=== PATIENT | male | born 1955 | race Caucasian/White ===

== ENCOUNTER 2016-05-08 05:58 | Emergency (ER) | payer BC ==
[~2016-05-08] VITALS: Ht 177.8 cm; Wt 84.7 kg
[~2016-05-08 05:58] MED LIST: BENICAR20 MG PO; GLUCOPHAGE500 MG PO; HTN; HYDROCHLOROTH12.5 M1 PO; HYDROCHLOROTHIAZIDE; IMDUR30 MG PO; PRILOSEC20 MG PO; SUCRALFATE1 GM PO; TOPROL XL50 MG PO
[2016-05-08 06:34] LABS: MCH 29.8 PG (29.0-34.0); MCHC 35.2 G/DL (30.0-36.0); MCV 84.7 FL (86-99); MEAN PLAT.VOLUME 10.2 uM^3 (9.0-12.4); PLATELET COUNT 156 K/uL (156-360); RBC DIS.WIDTH-SD 40.5 % (39-53); WHITE BLOOD COUNT 15.3 K/uL (4.1-10.2)
[2016-05-08 07:24] LABS: CHLORIDE 100 mEq/L (99-109); POTASSIUM 3.8 mEq/L (3.7-5.4); SODIUM 134 mEq/L (136-147)
[2016-05-08 07:26] LABS: GLUCOSE 291 mg/dL (70-99)
[2016-05-08 07:27] LABS: ANION GAP 13 MEQ/L (2-14)
[2016-05-08 07:28] LABS: TOTAL BILIRUBIN 0.7 mg/dL (0.0-1.0)
[2016-05-08 07:29] LABS: ALKALINE PHOSPHATASE 77 IU/L (3-129); GFR ESTIMATE (CALCULATED) > 59 mL/min/
[2016-05-08 07:31] LABS: UREA NITROGEN (BUN) 16 mg/dL (9-23)
[2016-05-08 09:14] LABS: ADD MIUA? YES; BILIRUBIN NEGATIVE; BLOOD SMALL; COLOR YELLOW ((YELLOW)); GLUCOSE (STRIP) >=1000; KETONES 15; LEUKOCYTES NEGATIVE; NITRITE NEGATIVE; PH, URINE 5.5 (5-8); PROTEIN (STRIP) TRACE; SPECIFIC GRAVITY 1.037 (1.000-1.030); UROBILINOGEN 0.2 MG/DL (0.2-1.0)
[2016-05-08] MEDS ORDERED: GLIPIZIDE10 MG PO (09:24)
[2016-05-08] MEDS ORDERED: LISINOPRIL5 MG PO (09:25)
[2016-05-08] MEDS ORDERED: ATORVASTATIN CA10 MG PO (09:32)
[2016-05-08 09:51] LABS: BACTERIA NONE SEEN; CASTS NONE SEEN /LPF; CRYSTALS NONE SEEN; EPITHELIAL CELLS RARE; MUCUS NONE SEEN; PATHOLOGICAL CAST NONE SEEN; RED BLOOD CELLS 15-20 /HPF (0-5); SMALL ROUND CELL NONE SEEN; UCUL ADDED? NO; WHITE BLOOD CELLS 0-5 /HPF (0-5); YEAST-LIKE CELL NONE SEEN
[2016-05-08] MEDS ORDERED: ZOFRAN4 MG PO (11:08)
[2016-05-08] MEDS ORDERED: TORADOL10 MG PO (11:08)
[2016-05-08] MEDS ORDERED: PERCOCET 5/31 TABLET PO (11:08)
[2016-05-08] MEDS ORDERED: FLOMAX0.4 MG PO (11:08)
[2016-05-08 11:23] VITALS: BP 118/82
== END 2016-05-08 11:25 | disposition home or self-care (01) ==
LOC: EME 05:58
PROVIDERS: Emergency Medicine
DX: N20.1 Calculus of ureter (principal); Z87.442 Personal history of urinary calculi; E11.9 Type 2 diabetes mellitus without complications; I10 Essential (primary) hypertension; K21.9 Gastro-esophageal reflux disease without esophagitis; G43.909 Migraine, unspecified, not intractable, without status migrainosus; Z88.0 Allergy status to penicillin; Z88.8 Allergy status to other drugs, medicaments and biological substances; Z91.040 Latex allergy status; F17.200 Nicotine dependence, unspecified, uncomplicated; Z79.84 Long term (current) use of oral hypoglycemic drugs
CPT/HCPCS: 74176; 80053; 81003; 85027; 99281; 99285; J1885; J2405; J7030

== ENCOUNTER 2017-03-22 19:28 | Inpatient (IN) | payer BC ==
[~2017-03-22] VITALS: Ht 177.8 cm; Wt 83.7 kg
[~2017-03-22 19:28] MED LIST changes: +ATORVASTATIN CA10 MG PO; +FLOMAX0.4 MG PO; +GLIPIZIDE10 MG PO; +GLUCOPHAGE1000 MG PO; -GLUCOPHAGE500 MG PO; +LISINOPRIL5 MG PO; +PERCOCET 5/31 TABLET PO; +TORADOL10 MG PO; +ZOFRAN4 MG PO
[2017-03-22 20:48] LABS: HEMATOCRIT 50.2 % (38.0-50.0); MCHC 35.9 G/DL (30.0-36.0); MCV 86.6 FL (86-99); MEAN PLAT.VOLUME 9.7 uM^3 (9.0-12.4); PLATELET COUNT 151 K/uL (156-360); RBC DIS.WIDTH-CV 12.6 % (11.8-14.6); RBC DIS.WIDTH-SD 39.8 % (39-53); WHITE BLOOD COUNT 9.6 K/uL (4.1-10.2)
[2017-03-22 20:55] LABS: INTER. NORMALIZED RATIO 0.9; PROTHROMBIN TIME 10.6 SEC (10.2-12.9)
[2017-03-22 20:58] LABS: PTT 35.5 SEC (25-37)
[2017-03-22 20:59] LABS: CHLORIDE 103 mEq/L (99-109)
[2017-03-22 21:00] LABS: POTASSIUM 3.6 mEq/L (3.7-5.4); SODIUM 136 mEq/L (136-147)
[2017-03-22 21:01] LABS: GLUCOSE 191 mg/dL (70-99)
[2017-03-22 21:03] LABS: ANION GAP 10 MEQ/L (2-14)
[2017-03-22 21:05] LABS: GFR ESTIMATE (CALCULATED) > 59 mL/min/
[2017-03-22 21:06] LABS: UREA NITROGEN (BUN) 14 mg/dL (9-23)
[2017-03-22 21:13] LABS: TROP-I INTERPRETATION NEGATIVE; TROPONIN-I < 0.01 ng/mL (0.0-0.30)
[2017-03-22] MEDS ORDERED: LOPRESSOR25 MG PO (21:39)
[2017-03-22] MEDS ORDERED: LIPITOR10 MG PO (21:40)
[2017-03-22] MEDS ORDERED: CILOSTAZOL50 MG PO (21:46)
[2017-03-22 23:45] VITALS: BP 153/81
[2017-03-22 23:47] LABS: POINT-OF-CARE METER ID UU14174225
[2017-03-23 05:14] LABS: POINT-OF-CARE METER ID UU14188625
[2017-03-23 07:42] LABS: HDL CHOLESTEROL 28 MG/DL (Desirable>=40); LDL CHOLESTEROL 49 mg/dL (Desirable<100); NON-HDL CHOLESTEROL 74 mg/dL (Desirable<160); TOTAL CHOLESTEROL 102 mg/dL (Desirable<200); TRIGLYCERIDES 127 MG/DL (Normal: <150)
[2017-03-23 07:49] VITALS: BP 167/93
[2017-03-23 08:35] LABS: Estimated Average Glucose 212 mg/dL (70-123)
[2017-03-23 11:32] LABS: POINT-OF-CARE METER ID UU14188625
[2017-03-23 12:15] LABS: ADD MIUA? NO; BILIRUBIN NEGATIVE; BLOOD NEGATIVE; COLOR YELLOW ((YELLOW)); GLUCOSE (STRIP) >=500; KETONES 20; LEUKOCYTES NEGATIVE; NITRITE NEGATIVE; PROTEIN (STRIP) NEGATIVE; SPECIFIC GRAVITY 1.013 (1.000-1.030); UROBILINOGEN 0.2 MG/DL (0.2-1.0)
== END 2017-03-23 14:42 | disposition left against medical advice (07) | DRG 65 ==
LOC: EME 19:28 → ENRESERV 22:04 → 5SOUTH 22:04 → EDOF 22:04 → ENRESERV 22:20 → 5SOUTH 23:20
PROVIDERS: Emergency Medicine; Hospitalist; Internal Medicine
DX: I63.9 Cerebral infarction, unspecified (principal); J98.11 Atelectasis; E11.51 Type 2 diabetes mellitus with diabetic peripheral angiopathy without gangrene; E78.5 Hyperlipidemia, unspecified; F17.210 Nicotine dependence, cigarettes, uncomplicated; I70.203 Unspecified atherosclerosis of native arteries of extremities, bilateral legs; I10 Essential (primary) hypertension; I25.10 Atherosclerotic heart disease of native coronary artery without angina pectoris; R29.701 NIHSS score 1; R29.810 Facial weakness; R13.10 Dysphagia, unspecified; K21.9 Gastro-esophageal reflux disease without esophagitis; Z98.62 Peripheral vascular angioplasty status; Z91.19 Patient's noncompliance with other medical treatment and regimen; Z88.0 Allergy status to penicillin; Z91.040 Latex allergy status; Z95.1 Presence of aortocoronary bypass graft; Z87.442 Personal history of urinary calculi; Z80.0 Family history of malignant neoplasm of digestive organs; Z80.41 Family history of malignant neoplasm of ovary; Z79.84 Long term (current) use of oral hypoglycemic drugs
CPT/HCPCS: 70450; 70551; 71020; 80048; 80061; 81003; 82948; 83036; 84484; 85027; 85610; 85730; 92610 GN; 93005; 93306; 93880; 94010; 94640; 99202; 99281; 99285; J1650; J1815; J7030

== ENCOUNTER 2017-03-25 13:45 | Observation (INO) | payer BC ==
[~2017-03-25] VITALS: Ht 177.8 cm; Wt 84.8 kg
[~2017-03-25 13:45] MED LIST changes: +CILOSTAZOL50 MG PO; +LIPITOR10 MG PO; +LOPRESSOR25 MG PO
[2017-03-25 15:03] LABS: HEMATOCRIT 51.7 % (38.0-50.0); MCH 30.3 PG (29.0-34.0); MCHC 34.8 G/DL (30.0-36.0); MEAN PLAT.VOLUME 9.8 uM^3 (9.0-12.4); PLATELET COUNT 162 K/uL (156-360); RBC DIS.WIDTH-CV 12.6 % (11.8-14.6); RBC DIS.WIDTH-SD 40.1 % (39-53); RED BLOOD COUNT 5.94 M/uL (4.00-5.50); WHITE BLOOD COUNT 9.2 K/uL (4.1-10.2)
[2017-03-25 15:12] LABS: CHLORIDE 104 mEq/L (99-109); POTASSIUM 3.9 mEq/L (3.7-5.4); SODIUM 141 mEq/L (136-147)
[2017-03-25 15:13] LABS: GLUCOSE 209 mg/dL (70-99)
[2017-03-25 15:15] LABS: ANION GAP 13 MEQ/L (2-14)
[2017-03-25 15:17] LABS: GFR ESTIMATE (CALCULATED) > 59 mL/min/
[2017-03-25 15:18] LABS: UREA NITROGEN (BUN) 15 mg/dL (9-23)
[2017-03-25] MEDS ORDERED: ASPIR 8181 M1 PO (20:11)
[2017-03-25] MEDS ORDERED: ZYRTEC5 MG PO (20:12)
[2017-03-25 21:14] VITALS: BP 166/79
[2017-03-26 00:14] VITALS: BP 166/79
[2017-03-26 03:42] VITALS: BP 142/69
[2017-03-26 08:00] VITALS: BP 140/77
[2017-03-26 08:15] LABS: POINT-OF-CARE METER ID UU13113717
[2017-03-26 09:57] LABS: Estimated Average Glucose 212 mg/dL (70-123)
[2017-03-26 10:26] LABS: HDL CHOLESTEROL 31 MG/DL (Desirable>=40); LDL CHOLESTEROL 42 mg/dL (Desirable<100); NON-HDL CHOLESTEROL 65 mg/dL (Desirable<160); TOTAL CHOLESTEROL 96 mg/dL (Desirable<200); TRIGLYCERIDES 116 MG/DL (Normal: <150)
[2017-03-26] MEDS ORDERED: AZITHROMYCIN500 M1 PO (11:55)
[2017-03-26 12:22] VITALS: BP 181/87
[2017-03-26 12:25] LABS: POINT-OF-CARE METER ID UU13113717
== END 2017-03-26 14:45 | disposition home or self-care (01) ==
LOC: EME 13:45 → 5SOUTH 19:23 → EDOF 19:23 → ENRESERV 19:23 → 5SOUTH 21:00
PROVIDERS: Hospitalist
DX: I63.8 Other cerebral infarction (principal); I10 Essential (primary) hypertension; I25.10 Atherosclerotic heart disease of native coronary artery without angina pectoris; E11.51 Type 2 diabetes mellitus with diabetic peripheral angiopathy without gangrene; E78.5 Hyperlipidemia, unspecified; K21.9 Gastro-esophageal reflux disease without esophagitis; Z87.442 Personal history of urinary calculi; Z95.1 Presence of aortocoronary bypass graft; F17.200 Nicotine dependence, unspecified, uncomplicated; Z88.0 Allergy status to penicillin; Z88.8 Allergy status to other drugs, medicaments and biological substances; Z80.0 Family history of malignant neoplasm of digestive organs; Z80.41 Family history of malignant neoplasm of ovary
CPT/HCPCS: 70450; 70551; 71020; 80048; 80061; 82948; 83036; 85027; 87651 90; 93005; 99202; G0378; J1650; J1815